=== PATIENT | female | born 1985 | race African-American/Black ===

== ENCOUNTER 2021-02-17 12:17 | Emergency (ER) | payer OTHER ==
[~2021-02-17] VITALS: Ht 172.7 cm; Wt 140.6 kg
[~2021-02-17 12:17] MED LIST: ACETAMINOPHEN-1 EAC1 PO; AMOXICILLIN 50500 MG PO; BENICAR 5 MG5 M1 PO; BENICAR 5 MG5 MG PO; CYCLOBENZAPRINE5 MG PO; DIFLUCAN150 MG PO; FLEXERIL PO; GLUCOPHAGE XR500 MG PO; HYDROCHLOROTHIA25 M2; HYDROCHLOROTHIA25 M2 PO; HYDROCODONE-AP1 EAC6 PO; IBUPROFEN 800800 M1 PO; IBUPROFEN 800800 MG PO; KEFLEX500 M1 PO; LIDOCAINE VISC100 ML PO; METFORMIN HCL1000 MG PO; METFORMIN HCL500 M3 PO; METFORMIN HCL500 MG; METFORMIN HCL500 MG PO; METOPROLOL SUC100 MG PO; MUCINEX600 MG PO; Magic Mouthwash SWISH&SPIT; NABUMETONE 750750 M1 PO; NORCO 5-325 TA1 EAC1 PO; NORCO5 PO; OLMESARTAN MEDOX5 MG PO; PENICILLIN V P500 MG PO; PENICILLIN VK250 MG PO; PERCOCET 5-3251 EACH PO; SUBOXONE 8 MG-1 EAC3 SUBLING; TOPROL XL100 MG; TOPROL XL100 MG PO; ULTRAM 50MG TAB50 MG PO; [UNRECOGNIZED DRUG - OTHER] PO
[2021-02-17] MEDS ORDERED: IBUPROFEN 800800 M1 PO (13:45)
[2021-02-17] MEDS ORDERED: CYCLOBENZAPRINE5 MG PO (13:45)
[2021-02-17 14:03] VITALS: BP 131/75
== END 2021-02-17 14:04 | disposition home or self-care (01) ==
LOC: ER 12:17
DX: M25.511 Pain in right shoulder (principal); M54.5 Low back pain; F17.210 Nicotine dependence, cigarettes, uncomplicated; E11.9 Type 2 diabetes mellitus without complications; I10 Essential (primary) hypertension; Z98.890 Other specified postprocedural states; Z88.8 Allergy status to other drugs, medicaments and biological substances; Z88.6 Allergy status to analgesic agent; V43.52XA Car driver injured in collision with other type car in traffic accident, initial encounter; Y93.89 Activity, other specified; Y92.481 Parking lot as the place of occurrence of the external cause; Y99.8 Other external cause status